=== PATIENT | female | born 1955 | race Caucasian/White ===

== ENCOUNTER 2018-03-19 14:52 | Inpatient (IN) ==
--- NOTE | 2018-03-19 17:46 | ED ---
HPI General Chief complaint: Syncope Stated complaint: Poss syncope Time Seen by Provider: 03/19/18 17:45 Source: patient Mode of arrival: EMS Limitations: no limitations History of Present Illness HPI narrative: 62-year-old female with no significant medical history presents emergency department following a syncopal episode. Patient went outside and smoke a cigarette. She is walking inside when she came in the door she collapsed. Patient does not remember what happened. Her was not in the room. He heard her fall and came in she was on the floor. She is uncertain if she hit her head but is reporting left posterior neck pain. It is moderate, dull, aching.Patient denies any chest pain or tightness. She denies any recent illnesses. She was however seen and evaluated last night emergency department had a small abscess drained on her left abdomen. Packing is still in place. Patient denies any chest pain or tightness. She denies any focal deficits or weakness. She has no other symptoms to report. Related Data Home Medications Medication Instructions Recorded Confirmed No Known Home Medications 03/18/18 03/19/18 Allergies Allergy/AdvReac Type Severity Reaction Status Date / Time penicillin G Allergy Severe Swelling Verified 03/19/18 17:33 ketorolac AdvReac Intermediate NAUSEA Verified 03/19/18 17:33 naproxen AdvReac Intermediate NAUSEA Verified 03/19/18 17:33 Review of Systems Except as stated in HPI: all other systems reviewed are negative PMFSH Medical History Medical History H/O: hysterectomy (Acute) Patient denies medical problems (Acute) Surgical History Surgical History Hx of section (Acute) Social History Social History Substance History: No History of Abuse Second Hand Smoke Exposure: Yes Smoking Status: Current every day smoker Tobacco Type: Cigarettes How Often Do You Have a Drink Containing Alcohol: Never Recent Travel in [facility] within the Last 8 Weeks: No Recent Out of Country Travel within the Last 8 Weeks: No Immunization History Tetanus Immunization: >5 Years Hx Influenza Vaccine This Season: No Exam Narrative Exam Narrative: GENERAL: Well-nourished female patient, appears in no acute distress. SKIN: Focused skin assessment warm/dry. HEAD: Atraumatic. Normocephalic. EYES: Pupils equal and round. No scleral icterus. No injection or drainage. EOMI ENT: No nasal bleeding or discharge. Mucous membranes pink and moist. NECK: Trachea midline. No JVD. CARDIOVASCULAR: Bradycardia rate and rhythm. No murmur appreciated. RESPIRATORY: No accessory muscle use. Clear to auscultation. Breath sounds equal bilaterally. GASTROINTESTINAL: Abdomen soft, non-tender, nondistended. Hepatic and splenic margins not palpable. MUSCULOSKELETAL: No obvious deformities. No clubbing. No cyanosis. No edema. NEUROLOGICAL: Awake and alert. No obvious cranial nerve deficits. Motor grossly within normal limits. Normal speech. PSYCHIATRIC: Appropriate mood and affect; insight and judgment normal. Course Initial Documented Vital Signs Temperature 97.5 F L 03/19/18 15:01 Pulse Rate 54 L 03/19/18 15:01 Respiratory Rate 16 03/19/18 15:01 Blood Pressure 116/54 L 03/19/18 15:01 Pulse Oximetry 99 03/19/18 15:01 Last Documented Vital Signs Temperature 97.5 F L 03/19/18 15:01 Pulse Rate 42 L 03/19/18 19:25 Respiratory Rate 15 03/19/18 19:25 Blood Pressure 122/58 L 03/19/18 19:25 Pulse Oximetry 100 03/19/18 19:25 Medical Decision Making ILIA Attestation ILIA supervised visit: Yes [facility] Narrative Medical decision making narrative: 62-year-old female presents emergency department for evaluation following a syncopal episode. Patient appears well. She has no neuro focal deficits or weakness. She is intermittently bradycardic that is sustained for quite some time here in the emergency department. She does not have any history of this per her knowledge. I discussed the patient with my attending physician. After review of the labs and imaging studies, she we feel would be in her best interest to be admitted observation for further evaluation of syncope and bradycardia. Differential Diagnosis Differential Diagnosis: Syncope versus near syncope versus electrolyte abnormality versus dehydration versus arrhythmia Medical Records Medical records reviewed: Yes I reviewed the patient's medical records. Lab Data Lab results reviewed: Yes I reviewed the patient's lab results. Result diagrams: 03/19/18 18:30 03/19/18 18:30 Lab Results 03/19/18 03/19/18 03/19/18 Range/Units 18:30 18:30 18:30 WBC 12.0 H (4.0-11.0) th/mm3 RBC 4.20 (4.00-5.30) mil/mm3 Hgb 12.7 (11.6-15.3) gm/dL Hct 36.0 (35.0-46.0) % MCV 85.7 (80.0-100.0) fL MCH 30.4 (27.0-34.0) pg MCHC 35.5 (32.0-36.0) % RDW 13.4 (11.6-17.2) % Plt Count 277 (150-450) th/mm3 MPV 7.9 (7.0-11.0) fL Neut % (Auto) 77.5 H (16.0-70.0) % Lymph % (Auto) 16.4 (9.0-44.0) % [place] % (Auto) 5.4 (0.0-8.0) % Eos % (Auto) 0.2 (0.0-4.0) % Baso % (Auto) 0.5 (0.0-2.0) % Neut # (Auto) 9.3 H (1.8-7.7) th/mm3 Lymph # (Auto) 2.0 (1.0-4.8) th/mm3 [place] # (Auto) 0.6 (0.0-0.9) th/mm3 Eos # (Auto) 0.0 (0.0-0.4) th/mm3 Baso # (Auto) 0.1 (0.0-0.2) th/mm3 WBC Differential . Differential Comment Auto diff final PT 11.0 (9.8-11.6) sec INR 1.1 Ratio APTT 26.0 (24.3-30.1) sec Sodium 141 (136-145) meq/L Potassium 3.8 (3.5-5.1) meq/L Chloride 106 (98-107) meq/L Carbon Dioxide 26.6 (21.0-32.0) meq/L Anion Gap 8 (5-15) meq/L BUN 15 (7-18) mg/dL Creatinine 0.67 (0.50-1.00) mg/dL Estimated GFR 89 (>89) mL/min Random Glucose 83 (74-106) mg/dL Calcium 8.8 (8.5-10.1) mg/dL Troponin I Less than 0.02 L (0.02-0.05) ng/mL Urine Color (Yellw/Straw) Urine Clarity (Clear) Urine pH (5.0-8.5) Ur Specific [place] (1.002-1.035) Urine Protein (Neg-Trace) mg/dL Urine Glucose (UA) (Negative) mg/dL Urine Ketones (Negative) mg/dL Urine Occult Blood (Negative) Urine Nitrate (Negative) Urine Bilirubin (Negative) Urine Urobilinogen (Less than 2) mg/dL Ur Leukocyte Esterase (Negative) Urine RBC (0-3) /hpf Urine WBC (0-5) /hpf Ur Squamous Epith Cells (0-5) /hpf Urine Bacteria (None) /hpf Micro UA Comment Urine Culture Comments 03/19/18 Range/Units 20:20 WBC (4.0-11.0) th/mm3 RBC (4.00-5.30) mil/mm3 Hgb (11.6-15.3) gm/dL Hct (35.0-46.0) % MCV (80.0-100.0) fL MCH (27.0-34.0) pg MCHC (32.0-36.0) % RDW (11.6-17.2) % Plt Count (150-450) th/mm3 MPV (7.0-11.0) fL Neut % (Auto) (16.0-70.0) % Lymph % (Auto) (9.0-44.0) % [place] % (Auto) (0.0-8.0) % Eos % (Auto) (0.0-4.0) % Baso % (Auto) (0.0-2.0) % Neut # (Auto) (1.8-7.7) th/mm3 Lymph # (Auto) (1.0-4.8) th/mm3 [place] # (Auto) (0.0-0.9) th/mm3 Eos # (Auto) (0.0-0.4) th/mm3 Baso # (Auto) (0.0-0.2) th/mm3 WBC Differential Differential Comment PT (9.8-11.6) sec INR Ratio APTT (24.3-30.1) sec Sodium (136-145) meq/L Potassium (3.5-5.1) meq/L Chloride (98-107) meq/L Carbon Dioxide (21.0-32.0) meq/L Anion Gap (5-15) meq/L BUN (7-18) mg/dL Creatinine (0.50-1.00) mg/dL Estimated GFR (>89) mL/min Random Glucose (74-106) mg/dL Calcium (8.5-10.1) mg/dL Troponin I (0.02-0.05) ng/mL Urine Color Straw (Yellw/Straw) Urine Clarity Clear (Clear) Urine pH 6.0 (5.0-8.5) Ur Specific [place] 1.003 (1.002-1.035) Urine Protein Negative (Neg-Trace) mg/dL Urine Glucose (UA) Negative (Negative) mg/dL Urine Ketones Negative (Negative) mg/dL Urine Occult Blood Negative (Negative) Urine Nitrate Negative (Negative) Urine Bilirubin Negative (Negative) Urine Urobilinogen Less than 2 (Less than 2) mg/dL Ur Leukocyte Esterase Negative (Negative) Urine RBC 1 (0-3) /hpf Urine WBC 3 (0-5) /hpf Ur Squamous Epith Cells 4 (0-5) /hpf Urine Bacteria Moderate H (None) /hpf Micro UA Comment Culture indicated Urine Culture Comments Culture indicated Imaging Data Radiologist's impression: Cervical Spine CT 03/19/18 18:22 CONCLUSION: 1. Moderate degenerative disc disease in the lower cervical spine with mild lateral recess and left-sided foraminal stenosis at C5-6-7. No acute findings. Head CT 03/19/18 18:22 CONCLUSION: 1. No acute intracranial abnormalities. Fluid in the sphenoid sinus. Discharge Plan Discharge Disposition Patient Disposition: 30 Still Patient Discharge Details Diagnosis: Syncope, Bradycardia Physicians Team ED Provider: Olegario Jansen ED Midlevel Provider: Stacy Mccray Primary Care Provider: Primary Care Physici,No Attending Provider: Jake Matson Status ED Status: Admitted Observation Patient
[2018-03-19] MEDS ORDERED: Sod Chloride 0.9% Inj 1,000 ML IV.SIG ONE (18:22)
[2018-03-19 18:50] LABS: Baso # (Auto) 0.1 th/mm3 (0.0-0.2); Baso % (Auto) 0.5 % (0.0-2.0); Eos % (Auto) 0.2 % (0.0-4.0); Hemoglobin 12.7 gm/dL (11.6-15.3); Lymph % (Auto) 16.4 % (9.0-44.0); Mean Corpuscular HGB Conc 35.5 % (32.0-36.0); Mean Corpuscular Hemoglobin 30.4 pg (27.0-34.0); Mean Corpuscular Volume 85.7 fL (80.0-100.0); Mean Platelet Volume 7.9 fL (7.0-11.0); Mono # (Auto) 0.6 th/mm3 (0.0-0.9); Mono % (Auto) 5.4 % (0.0-8.0); Neut # (Auto) 9.3 th/mm3 (1.8-7.7); Neut % (Auto) 77.5 % (16.0-70.0); Platelet Count 277 th/mm3 (150-450); Red Cell Distribution Width 13.4 % (11.6-17.2)
[2018-03-19 19:07] LABS: INR 1.1 Ratio
[2018-03-19 19:11] LABS: Anion Gap 8 meq/L (5-15); Blood Urea Nitrogen 15 mg/dL (7-18); Calcium 8.8 mg/dL (8.5-10.1); Carbon Dioxide 26.6 meq/L (21.0-32.0); Chloride 106 meq/L (98-107); Glomerular Filtration Rate 89 mL/min (>89); Glucose,Random 83 mg/dL (74-106); Potassium 3.8 meq/L (3.5-5.1); Sodium 141 meq/L (136-145)
--- NOTE | 2018-03-19 19:11 | CT ---
EXAM DATE: 03/19/2018 7:05 PM EDT AGE/SEX: 62 years / Female INDICATIONS: Syncopal episode. CLINICAL DATA: This is the patient's initial encounter. Patient reports that signs and symptoms have been present for 1 day and indicates a pain score of 5/10. MEDICAL/SURGICAL HISTORY: None. Hysterectomy. RADIATION DOSE: 16.82 CTDI (mGy) COMPARISON: No prior exams available for comparison. TECHNIQUE: Contiguous axial images were obtained using helical multirow detector technique. The vol umetric data was post-processed with multiplanar reconstruction in oblique axial, sagittal, and coron al planes. Using automated exposure control and adjustment of the mA and/or kV according to patient s ize, radiation dose was kept as low as reasonably achievable to obtain optimal diagnostic quality raysa ges. DICOM format image data is available electronically for review and comparison. FINDINGS: There is moderate degenerative disc disease in the cervical spine. No acute fracture or spondylolisth esis. No prevertebral soft tissues. There is no significant bony canal stenosis. CONCLUSION: 1. Moderate degenerative disc disease in the lower cervical spine with mild lateral recess and left- sided foraminal stenosis at C5-6-7. No acute findings. Electronically signed by: Donnell Coronel MD 03/19/2018 7:10 PM EDT
--- NOTE | 2018-03-19 19:13 | CT ---
EXAM DATE: 03/19/2018 7:04 PM EDT AGE/SEX: 62 years / Female INDICATIONS: Syncopal episode. CLINICAL DATA: This is the patient's initial encounter. Patient reports that signs and symptoms have been present for 1 day and indicates a pain score of 5/10. MEDICAL/SURGICAL HISTORY: None. Hysterectomy. RADIATION DOSE: 32.50 CTDI (mGy) COMPARISON: No prior exams available for comparison. TECHNIQUE: CT of the head without contrast. Using automated exposure control and adjustment of the mA and/or kV according to patient size, radiation dose was kept as low as reasonably achievable to ob tain optimal diagnostic quality images. DICOM format image data is available electronically for revi ew and comparison. FINDINGS: Cerebrum: The ventricles are normal for age. No evidence of midline shift, mass lesion, hemorrhage or acute infarction. No extraaxial fluid collections are seen. Posterior Fossa: The cerebellum and brainstem are intact. The 4th ventricle is midline. The cerebe llopontine angle is unremarkable. Extracranial: The visualized portion of the orbits is intact. There is fluid in the sphenoid sinus. Skull: The calvaria is intact. No evidence of skull fracture. CONCLUSION: 1. No acute intracranial abnormalities. Fluid in the sphenoid sinus. Electronically signed by: Donnell Coronel MD 03/19/2018 7:12 PM EDT
[2018-03-19 20:42] LABS: Bacteria,Urine Moderate /hpf; Bilirubin,Urine Negative (Negative); Clarity,Urine Clear (Clear); Color,Urine Straw (Yellw/Straw); Glucose,Urine (UA) Negative (Negative); Leukocyte Esterase,Urine Negative (Negative); Nitrite,Urine Negative (Negative); Specific Gravity,Urine 1.003 (1.002-1.035); Squamous Epithelial Cell,Urine 4 /hpf (0-5)
--- NOTE | 2018-03-19 22:05 | P.HP ---
History of Present Illness Service: [facility] adult medicine Primary Care Physician: No Primary Care Physician Chief Complaint: passed out History of Present Illness: 62-year-old obese female who is otherwise relatively healthy presents to the ER via [facility] after her found her on the floor unresponsive at their home earlier today. He reports he was in the next room and heard her fall against the wall onto to the floor. When he ran into the next room to investigate he found her somewhat unresponsive prone on the floor with her left arm behind her back. He reports that she was unconscious for approximately 30-45 seconds. He notified [facility] immediately and she apparently was conscious when they arrived. Her vital signs have been relatively stable here but her heart rate is remained in the 40s-50s consistently. I do not have any recent outpatient records but in 2016 on outpatient visits her heart rate was 59 and 67. She is unaware if she has had lower heart rate in the past and she does not typically go to the doctor and is generally pretty healthy. Patient reports that she can only remember coming back into her house after having smoked a cigarette and was walking across the room to her kitchen and the next thing she knew she was on the floor waking up with her staring down at her. She denies any chest pain or shortness of breath. There was no tongue biting or loss of bowel or bladder function. There was no postictal confusion. Patient denies any dyspnea or chest pain as noted. She had no palpitations. She has not had a similar episode in the past. It is noted that she had incision and drainage of a cyst on her left abdominal wall yesterday but she reports that has not been causing significant pain or problem for her. She denies any fevers or chills. Denies any nausea vomiting. No recent head injury but did say that her neck and her and felt somewhat tight after the fall today. Initial studies and labs are unrevealing as to the etiology of her syncopal episode. - Diagnosis (1) Syncope (2) Bradycardia (3) Cervicalgia (4) Abscess Review of Systems Constitutional: Denies anorexia, Denies body ache(s), Denies chills, Denies daytime sleepiness, Denies excessive sweating, Denies fatigue, Denies fever(s), Denies headache(s), Denies increased appetite, Denies lack of energy, Denies malaise, Denies night sweats, Denies weakness, Denies weight gain, Denies weight loss, Denies other Eyes: Denies blind spots, Denies blurry vision, Denies bulging eyes, Denies change in vision, Denies double vision, Denies discharge, Denies dry eyes, Denies floaters, Denies irritation, Denies itchy eyes, Denies loss of vision, Denies pain, Denies requires corrective lenses, Denies sensitivity to light, Denies other Ears, Nose, Mouth, and Throat: Denies abnormal hearing, Denies bleeding gums, Denies bad breath, Denies change in voice, Denies dental pain, Denies difficulty swallowing, Denies dizziness, Denies dry mouth, Denies ear discharge , Denies ear pain, Denies facial pain, Denies headache(s), Denies hearing loss, Denies hoarseness, Denies lip swelling, Denies nosebleed, Denies mouth lesions, Denies mouth pain, Denies nasal congestion, Denies nasal discharge, Denies nasal obstruction, Denies nasal trauma, Denies neck lump, Denies neck pain, Denies nose pain, Denies pain with swallowing, Denies poor balance, Denies post nasal drip, Denies ringing in the ears, Denies sinus pain, Denies sinus pressure , Denies sore throat, Denies throat swelling, Denies tongue swelling, Denies other Cardiovascular: Denies chest pain, Denies chest pain at rest, Denies chest pain with activity, Denies excessive sweating, Denies fainting, Denies fast heart rate, Denies foot swelling, Denies generalized swelling, Denies irregular heart rhythm, Denies leg pain with activity, Denies leg sores, Denies leg swelling, Denies lightheadedness, Denies radiating jaw, neck or arm pain, Denies rapid, pounding, or irregular heartbeat, Denies shortness of breath, Denies shortness of breath with activity, Denies shortness of breath when lying down, Denies shortness of breath causing sudden awakening, Denies slow heart rate, Denies other Respiratory: Denies change in phlegm color, Denies chest congestion, Denies cough, Denies coughing up blood, Denies excessive phlegm production, Denies pain on inspiration, Denies pain with cough, Denies shortness of breath, Denies shortness of breath with activity, Denies snoring, Denies stridor, Denies wheezing, Denies other Gastrointestinal: Denies abdominal pain, Denies belching, Denies black, tarry stools, Denies bloating, Denies bright, red blood in stools, Denies change in bowel habits, Denies constant urge to pass stool, Denies change in stools, Denies coffee ground vomit, Denies constipation, Denies cramping, Denies difficulty swallowing, Denies excessive passing of gas, Denies feeling full early, Denies heartburn, Denies incontinent of stools, Denies loose stools, Denies nausea, Denies pain with swallowing, Denies vomiting, Denies vomiting blood, Denies other Musculoskeletal: Reports joint pain, Reports neck pain Neurologic: Reports fainting, Denies abnormal hearing, Denies abnormal movements , Denies abnormal speech, Denies abnormal walking, Denies behavioral changes, Denies burning sensations, Denies confusion, Denies dizziness, Denies frequent falls, Denies headache(s), Denies lack of coordination, Denies localized weakness, Denies loss of vision, Denies memory loss, Denies numbness, Denies other visual disturbances, Denies radiating pain, Denies restless legs, Denies convulsions, Denies seizure-like activity, Denies sensory deficit, Denies tingling, Denies tingling/numbness/burning sensations, Denies tremor(s), Denies unsteadiness, Denies weakness, Denies other Psychiatric: Reports anxiety PMFSH - History History Provided By: Patient - Medical History Medical History: Medical History (Last Updated 03/19/18 @ 17:35 by Jen Jin RN) H/O: hysterectomy Patient denies medical problems - Surgical History Surgical History: Surgical History (Last Reviewed 03/19/18 @ 17:35 by Jen Jin RN) Hx of section - Tobacco History Second Hand Smoke Exposure: Yes Tobacco Use In Past 30 Days: Yes Smoking Status: Current every day smoker Tobacco Type: Cigarettes Cigarettes Per Day: 10 Years Smoked: 40 - Alcohol History How Often Do You Have a Drink Containing Alcohol: Monthly or less - Substance Use History Substance History: No History of Abuse - Travel History History of Recent Travel: No Recent Travel in the [facility] Within the Last 8 Weeks: No Recent Travel Out of the Country Within the Last 8 Weeks: No - Immunization History Tetanus Immunization: >5 Years Hx Influenza Vaccine This Season: No Medications and Allergies Allergies Allergy/AdvReac Type Severity Reaction Status Date / Time penicillin G Allergy Severe Swelling Verified 03/19/18 17:33 ketorolac AdvReac Intermediate NAUSEA Verified 03/19/18 22:00 naproxen AdvReac Intermediate NAUSEA Verified 03/19/18 17:33 Home Medications Medication Instructions Recorded Confirmed Type No Known Home Medications 03/18/18 03/19/18 History Exam Vital signs: Vital Signs 03/19/18 15:01 03/19/18 18:22 03/19/18 19:25 Temperature 97.5 F L Pulse Rate 54 L 94 H 42 L Respiratory Rate 16 15 Blood Pressure 116/54 L 122/58 L Pulse Oximetry 99 98 100 Intake & Output 03/19/18 03/19/18 03/20/18 06:59 18:59 06:59 Weight 72 kg Narrative: GENERAL: Obese, alert and oriented, no acute distress. SKIN: Warm and dry. Left lower abdominal wall with open wound from recent I&D procedure with packing in place. HEAD: Atraumatic. Normocephalic. EYES: Pupils equal and round. No scleral icterus. No injection or drainage. ENT: No nasal bleeding or discharge. Mucous membranes pink and moist. NECK: Trachea midline. No JVD. Paracervical spasm bilaterally. No central tenderness to palpation. CARDIOVASCULAR: Regular rate and rhythm. Rate in the 50s on my exam. No significant murmur. RESPIRATORY: No accessory muscle use. Clear to auscultation. Breath sounds equal bilaterally. GASTROINTESTINAL: Abdomen soft, non-tender, nondistended. Hepatic and splenic margins not palpable. MUSCULOSKELETAL: Extremities without clubbing, cyanosis, or edema. No obvious deformities. NEUROLOGICAL: Awake and alert. No obvious cranial nerve deficits. Motor grossly within normal limits. Five out of 5 muscle strength in the arms and legs. Normal speech. PSYCHIATRIC: Appropriate mood and affect; insight and judgment normal. Results - Labs CBC & Chem 7: 03/19/18 18:30 03/19/18 18:30 Labs: Laboratory Results - last 24 hr 03/19/18 03/19/18 03/19/18 18:30 18:30 18:30 WBC 12.0 H RBC 4.20 Hgb 12.7 Hct 36.0 MCV 85.7 MCH 30.4 MCHC 35.5 RDW 13.4 Plt Count 277 MPV 7.9 Neut % (Auto) 77.5 H Lymph % (Auto) 16.4 [place] % (Auto) 5.4 Eos % (Auto) 0.2 Baso % (Auto) 0.5 Neut # (Auto) 9.3 H Lymph # (Auto) 2.0 [place] # (Auto) 0.6 Eos # (Auto) 0.0 Baso # (Auto) 0.1 WBC Differential . Differential Comment Auto diff final PT 11.0 INR 1.1 APTT 26.0 Sodium 141 Potassium 3.8 Chloride 106 Carbon Dioxide 26.6 Anion Gap 8 BUN 15 Creatinine 0.67 Estimated GFR 89 Random Glucose 83 Calcium 8.8 Troponin I Less than 0.02 L Urine Color Urine Clarity Urine pH Ur Specific [place] Urine Protein Urine Glucose (UA) Urine Ketones Urine Occult Blood Urine Nitrate Urine Bilirubin Urine Urobilinogen Ur Leukocyte Esterase Urine RBC Urine WBC Ur Squamous Epith Cells Urine Bacteria Micro UA Comment Urine Culture Comments 03/19/18 20:20 WBC RBC Hgb Hct MCV MCH MCHC RDW Plt Count MPV Neut % (Auto) Lymph % (Auto) [place] % (Auto) Eos % (Auto) Baso % (Auto) Neut # (Auto) Lymph # (Auto) [place] # (Auto) Eos # (Auto) Baso # (Auto) WBC Differential Differential Comment PT INR APTT Sodium Potassium Chloride Carbon Dioxide Anion Gap BUN Creatinine Estimated GFR Random Glucose Calcium Troponin I Urine Color Straw Urine Clarity Clear Urine pH 6.0 Ur Specific [place] 1.003 Urine Protein Negative Urine Glucose (UA) Negative Urine Ketones Negative Urine Occult Blood Negative Urine Nitrate Negative Urine Bilirubin Negative Urine Urobilinogen Less than 2 Ur Leukocyte Esterase Negative Urine RBC 1 Urine WBC 3 Ur Squamous Epith Cells 4 Urine Bacteria Moderate H Micro UA Comment Culture indicated Urine Culture Comments Culture indicated - Imaging Impressions Cervical Spine CT 03/19/18 18:22 CONCLUSION: 1. Moderate degenerative disc disease in the lower cervical spine with mild lateral recess and left-sided foraminal stenosis at C5-6-7. No acute findings. Head CT 03/19/18 18:22 CONCLUSION: 1. No acute intracranial abnormalities. Fluid in the sphenoid sinus. Caprini VTE Risk Assessment Caprini VTE Risk Assessment: Moderate/High Risk (score >= 2) Caprini Risk Assessment Model: Point Value = 1 Point Value = 2 Point Value = 3 Point Value = 5 Age 41-60 Minor surgery BMI > 25 kg/m2 Swollen legs Varicose veins or History of unexplained or recurrent spontaneous Oral contraceptives or hormone replacement Sepsis (< 1 month) Serious lung disease, including pneumonia (< 1 month) Abnormal pulmonary function Acute myocardial infarction Congestive heart failure (< 1 month) History of inflammatory bowel disease Medical patient at bed rest Age 61-74 Arthroscopic surgery Major open surgery (> 45 min) Laparoscopic surgery (> 45 min) Malignancy Confined to bed (> 72 hours) Immobilizing plaster cast Central venous access Age >= 75 History of VTE Family history of VTE Factor V Leiden Prothrombin [id number] Lupus anticoagulant Anticardiolipin antibodies Elevated serum homocysteine Heparin-induced thrombocytopenia Other congenital or acquired thrombophilia Stroke (< 1 month) Elective arthroplasty Hip, pelvis, or leg fracture Acute spinal cord injury (< 1 month) Prophylaxis Regimen: Total Risk Factor Score Risk Level Prophylaxis Regimen 0-1 Low Early ambulation 2 Moderate Order ONE of the following: *Sequential Compression Device (SCD) *Heparin 5000 units SQ BID 3-4 Higher Order ONE of the following medications: *Heparin 5000 units SQ TID *Enoxaparin/Lovenox 40 mg SQ daily (WT < 150 kg, CrCl > 30 mL/min) *Enoxaparin/Lovenox 30 mg SQ daily (WT < 150 kg, CrCl > 10-29 mL/min) *Enoxaparin/Lovenox 30 mg SQ BID (WT < 150 kg, CrCl > 30 mL/min) AND/OR *Sequential Compression Device (SCD) 5 or more Highest Order ONE of the following medications: *Heparin 5000 units SQ TID (Preferred with Epidurals) *Enoxaparin/Lovenox 40 mg SQ daily (WT < 150 kg, CrCl > 30 mL/min) *Enoxaparin/Lovenox 30 mg SQ daily (WT < 150 kg, CrCl > 10-29 mL/min) *Enoxaparin/Lovenox 30 mg SQ BID (WT < 150 kg, CrCl > 30 mL/min) AND *Sequential Compression Device (SCD) Assessment and Plan - Assessment (1) Syncope Code(s): R55 - Syncope and collapse Status: Acute Plan: Questionable etiology. She remains somewhat bradycardic but I am unsure what her baseline heart rate is. Will check echo and carotid ultrasound. Monitor her on telemetry. Remainder of workup can be done as outpatient if these studies are nonrevealing. She appears back to her baseline with the exception of some paracervical spasm. (2) Bradycardia Code(s): R00.1 - Bradycardia, unspecified Status: Acute Plan: As above. (3) Cervicalgia Code(s): M54.2 - Cervicalgia Status: Acute Plan: We will provide muscle relaxer and one shot of Toradol. She seems to tolerate the IV formulation fine but has GI upset on oral formulation. (4) Abscess Code(s): L02.91 - Cutaneous abscess, unspecified Status: Acute Plan: Wound care. - Plan Code Status: full Discussed Condition With: , patient and ER provider (1) Syncope Qualifiers: Syncope type: unspecified Qualified Code(s): R55 - Syncope and collapse
[2018-03-19] MEDS ORDERED: Methocarbamol 500 MG Tablet PO PRN (22:10)
[2018-03-19] MEDS ORDERED: Ketorolac Inj 30 MG/ML (IVP) Vial IV.PUSH ONE (22:10)
[2018-03-19] MEDS: Acetaminophen 325 MG Tablet PO PRN (23:42)
--- NOTE | 2018-03-20 00:21 | US ---
EXAM DATE: 03/19/2018 11:39 PM EDT AGE/SEX: 62 years / Female INDICATIONS: Syncope. CLINICAL DATA: This is the patient's initial encounter. Patient reports that signs and symptoms have been present for 1 day and indicates a pain score of 0/10. MEDICAL/SURGICAL HISTORY: . Syncope. section. Hysterectomy. COMPARISON: No prior exams available for comparison. VELOCITY PARAMETERS: ICA/CCA Ratio: Right 0.9 , Left 1.2 ICA: Right 107 cm/sec, Left 110 cm/sec CCA: Right 100 cm/sec, Left 130 cm/sec ECA: Right 78 cm/sec, Left 116 cm/sec Vertebral: Right 67 cm/sec antegrade, Left 79 cm/sec antegrade FINDINGS: Right Carotid: No significant plaque is visualized.The waveforms are within normal limits. Left Carotid: No significant plaque is visualized. The waveforms are within normal limits. Other: None. CONCLUSION: 1. Right Internal Carotid Artery: Findings indicate <50% stenosis. 2. Left Internal Carotid Artery: Findings indicate <50% stenosis. Electronically signed by: Corbin Cutler MD 03/20/2018 12:20 AM EDT
[2018-03-20] MEDS: Acetaminophen 325 MG Tablet PO PRN ×2 (08:25→18:43)
--- NOTE | 2018-03-20 08:40 | ECG ---
Date Performed: 03/19/2018 Time Performed: 19:32:32 PTAGE: 62 years EKG: SINUS BRADYCARDIA ANTEROSEPTAL MYOCARDIAL INFARCTION T-WAVE ABNORMALITY, CONSIDER INFERIOR AND ANTEROLATERAL ISCHEMIA ABNORMAL ECG NO PREVIOUS TRACING DOCTOR: Zi Rodney Interpretating Date/Time 03/20/2018 08:40:26
--- NOTE | 2018-03-20 11:53 | ECHRPT ---
Indication: HYPERTENSIVE HEART DISEASE CONCLUSIONS The left ventricular systolic function is hyperdynamic with an estimated ejection fraction in the ra nge of 65- 70%. Normal left ventricular size. Wall thickness is normal. No regional wall motion abnormalities are present. No tricuspid regurgitation. Normal estimated pulmonary pressures. The pulmonary valve is not well visualized. BP: / HR: Rhythm: Sinus MEASUREMENTS (Male / Female) Normal Values Technical Quality:Good 2D ECHO LV Diastolic Diameter PLAX 4.3 cm 4.2 - 5.9 / 3.9 - 5.3 cm LV Systolic Diameter PLAX 3.4 cm IVS Diastolic Thickness 0.8 cm 0.6 - 1.0 / 0.6 - 0.9 cm LVPW Diastolic Thickness 0.8 cm 0.6 - 1.0 / 0.6 - 0.9 cm LV Relative Wall Thickness 0.4 RV Internal Dim ED PLAX 2.9 cm LVOT Diameter 1.9 cm LA Systolic Diameter LX 3.7 cm 3.0 - 4.0 / 2.7 - 3.8 cm LV Ejection Fraction MOD 4C 58.8 % LV Ejection Fraction 4C AL 60.2 % M-MODE Aortic Root Diameter MM 2.6 cm LA Systolic Diameter MM 3.7 cm LA Ao Ratio MM 1.4 AV Cusp Separation MM 2.2 cm DOPPLER AV Peak Velocity 125.0 cm/s AV Peak Gradient 6.3 mmHg LVOT Peak Velocity 106.0 cm/s LVOT Peak Gradient 4.5 mmHg AV Area Cont Eq pk 2.4 cm MV Area PHT 5.0 cm Mitral E Point Velocity 98.0 cm/s Mitral A Point Velocity 43.4 cm/s Mitral E to A Ratio 2.3 LV E' Lateral Velocity 10.5 cm/s Mitral E to LV E' Lateral Ratio 9.3 LV E' Septal Velocity 9.3 cm/s Mitral E to LV E' Septal Ratio 10.6 TR Peak Velocity 200.0 cm/s TR Peak Gradient 16.0 mmHg PV Peak Velocity 76.0 cm/s PV Peak Gradient 2.3 mmHg FINDINGS LEFT VENTRICLE The left ventricular systolic function is hyperdynamic with an estimated ejection fraction in the ra nge of 65- 70%. Normal left ventricular size. Wall thickness is normal. No regional wall motion abnormalities are present. RIGHT VENTRICLE Normal right ventricular size and systolic function. LEFT ATRIUM The left atrial size is normal. RIGHT ATRIUM The right atrial size is normal. ATRIAL SEPTUM Normal atrial septal thickness without atrial level shunting by limited color doppler interrogation. AORTA The aortic root and proximal ascending aorta are normal in size on limited imaging. MITRAL VALVE Structurally normal mitral valve. No mitral valve stenosis or regurgitation. AORTIC VALVE Trileaflet aortic valve. No aortic valve stenosis or regurgitation. TRICUSPID VALVE Structurally normal tricuspid valve. No tricuspid regurgitation. Normal estimated pulmonary pressures. PULMONARY VALVE The pulmonary valve is not well visualized. VESSELS The inferior vena cava is normal in size. PERICARDIUM No pericardial effusion. Luis Alberto Ureña MD, FACC, [facility] (Electronically Signed) Final Date:20 March 2018 11:52
--- NOTE | 2018-03-20 13:09 | P.PNIM ---
Subjective Interval history: Follow up: syncope Patient reports feeling better now asking to go home Physical Exam Vital signs: Vital Signs 03/19/18 15:01 03/19/18 18:22 03/19/18 19:25 Temperature 97.5 F L Pulse Rate 54 L 94 H 42 L Respiratory Rate 16 15 Blood Pressure 116/54 L 122/58 L Pulse Oximetry 99 98 100 03/19/18 21:58 03/19/18 22:34 03/19/18 22:38 Temperature 98.7 F 98.7 F Pulse Rate 75 64 67 Respiratory Rate 16 16 16 Blood Pressure 134/60 103/55 L 117/58 L Pulse Oximetry 97 98 98 03/19/18 22:40 03/20/18 00:01 03/20/18 04:00 Temperature 98.7 F 98.7 F Pulse Rate 65 56 L 60 Respiratory Rate 16 16 Blood Pressure 120/58 L 102/53 L Pulse Oximetry 98 96 03/20/18 08:47 03/20/18 10:24 Temperature 98.2 F Pulse Rate 70 45 L Respiratory Rate 20 Blood Pressure 100/56 L Pulse Oximetry 98 Intake & Output 03/19/18 03/20/18 03/20/18 18:59 06:59 18:59 Intake Total 1000 / 1000 Balance 1000 / 1000 Weight 72 kg Intake: IV 1000 / 1000 NS Inj 1,000 ML @ Wide Open IV. 1000 / 1000 SIG BOLUS ONE Rx#:[id number] Narrative: GENERAL: 62 year old female, no acute distress. SKIN: Warm and dry. Left lower abdominal wall with open wound from recent I&D procedure with packing in place. HEAD: Atraumatic. Normocephalic. EYES: Pupils equal and round. No scleral icterus. No injection or drainage. CARDIOVASCULAR: Bradycardic RESPIRATORY: No accessory muscle use. Clear to auscultation. GASTROINTESTINAL: Abdomen soft, non-tender, nondistended. MUSCULOSKELETAL: Extremities without clubbing, cyanosis, or edema. No obvious deformities. NEUROLOGICAL: Awake and alert. No obvious cranial nerve deficits. Motor grossly within normal limits. Five out of 5 muscle strength in the arms and legs. Normal speech. Results - Labs CBC & Chem 7: 03/21/18 12:23 03/19/18 18:30 Laboratory Results - last 24 hr 03/19/18 03/19/18 03/19/18 18:30 18:30 18:30 WBC 12.0 H RBC 4.20 Hgb 12.7 Hct 36.0 MCV 85.7 MCH 30.4 MCHC 35.5 RDW 13.4 Plt Count 277 MPV 7.9 Neut % (Auto) 77.5 H Lymph % (Auto) 16.4 [place] % (Auto) 5.4 Eos % (Auto) 0.2 Baso % (Auto) 0.5 Neut # (Auto) 9.3 H Lymph # (Auto) 2.0 [place] # (Auto) 0.6 Eos # (Auto) 0.0 Baso # (Auto) 0.1 WBC Differential . Differential Comment Auto diff final PT 11.0 INR 1.1 APTT 26.0 Sodium 141 Potassium 3.8 Chloride 106 Carbon Dioxide 26.6 Anion Gap 8 BUN 15 Creatinine 0.67 Estimated GFR 89 Random Glucose 83 Calcium 8.8 Troponin I Less than 0.02 L TSH 1.790 Urine Color Urine Clarity Urine pH Ur Specific [place] Urine Protein Urine Glucose (UA) Urine Ketones Urine Occult Blood Urine Nitrate Urine Bilirubin Urine Urobilinogen Ur Leukocyte Esterase Urine RBC Urine WBC Ur Squamous Epith Cells Urine Bacteria Micro UA Comment Urine Culture Comments 03/19/18 03/19/18 18:30 20:20 WBC RBC Hgb Hct MCV MCH MCHC RDW Plt Count MPV Neut % (Auto) Lymph % (Auto) [place] % (Auto) Eos % (Auto) Baso % (Auto) Neut # (Auto) Lymph # (Auto) [place] # (Auto) Eos # (Auto) Baso # (Auto) WBC Differential Differential Comment PT INR APTT Sodium Potassium Chloride Carbon Dioxide Anion Gap BUN Creatinine Estimated GFR Random Glucose Calcium Troponin I TSH Cancelled Urine Color Straw Urine Clarity Clear Urine pH 6.0 Ur Specific [place] 1.003 Urine Protein Negative Urine Glucose (UA) Negative Urine Ketones Negative Urine Occult Blood Negative Urine Nitrate Negative Urine Bilirubin Negative Urine Urobilinogen Less than 2 Ur Leukocyte Esterase Negative Urine RBC 1 Urine WBC 3 Ur Squamous Epith Cells 4 Urine Bacteria Moderate H Micro UA Comment Culture indicated Urine Culture Comments Culture indicated - Imaging Impressions Carotid Doppler Study 03/19/18 00:00 CONCLUSION: 1. Right Internal Carotid Artery: Findings indicate <50% stenosis. 2. Left Internal Carotid Artery: Findings indicate <50% stenosis. Cervical Spine CT 03/19/18 18:22 CONCLUSION: 1. Moderate degenerative disc disease in the lower cervical spine with mild lateral recess and left-sided foraminal stenosis at C5-6-7. No acute findings. Head CT 03/19/18 18:22 CONCLUSION: 1. No acute intracranial abnormalities. Fluid in the sphenoid sinus. Assessment and Plan - Plan Syncope Questionable etiology. Head CT reviewed and reveals: No acute intracranial abnormalities. Fluid in the sphenoid sinus. 2D cardiac echocardiogram: The left ventricular systolic function is hyperdynamic with an estimated ejection fraction in the range of 65- 70%. Normal left ventricular size. Wall thickness is normal. No regional wall motion abnormalities are present. No tricuspid regurgitation. Normal estimated pulmonary pressures. The pulmonary valve is not well visualized. Carotid ultrasound: 1. Right Internal Carotid Artery: Findings indicate <50% stenosis. 2. Left Internal Carotid Artery: Findings indicate <50% stenosis. Telemetry shows bradycardia in the 40s with syncopal episode 03/19/18 Bradycardia consult placed to cardiology Cervicalgia Resolved after muscle relaxer and Toradol. Cervical Spine CT reviewed and reveals: Moderate degenerative disc disease in the lower cervical spine with mild lateral recess and left-sided foraminal stenosis at C5-6-7. No acute findings. Abscess S/P incision and drainage of a cyst on her left abdominal wall 03/18/18 Wound care DVT prophylaxis with SCDs - Attending Attestation Patient examined. Assessment and plan formulated with Maryann Johnston PA-C. I agree with the above. HR in the 40s. No c/o chest pain. Consult Cardiology.
[2018-03-21] MEDS: Acetaminophen 325 MG Tablet PO PRN (05:54)
--- NOTE | 2018-03-21 11:27 | P.PNIM ---
Subjective Interval history: Follow up: syncope and bradycardia Patient reports feeling well feels fatigued due to frequently being woken up while trying to sleep Physical Exam Vital signs: Vital Signs 03/20/18 12:00 03/20/18 13:33 03/20/18 18:09 Temperature Pulse Rate 46 L 60 Respiratory Rate 18 Blood Pressure 90/54 L 101/58 L 96/55 L Pulse Oximetry 98 98 03/20/18 20:00 03/20/18 20:32 03/20/18 20:34 Temperature 98.7 F 98.7 F 98.7 F Pulse Rate 63 57 L 60 Respiratory Rate 16 16 16 Blood Pressure 109/54 L 102/57 L 96/53 L Pulse Oximetry 96 95 95 03/21/18 00:00 03/21/18 04:00 03/21/18 08:00 Temperature 98.4 F 98.2 F 97.7 F Pulse Rate 51 L 45 L 43 L Respiratory Rate 16 16 16 Blood Pressure 103/57 L 99/52 L 100/51 L Pulse Oximetry 97 97 95 Intake & Output 03/20/18 03/21/18 03/21/18 18:59 06:59 18:59 Other: # Voids 4 # Emeses 0 Narrative: GENERAL: 62 year old female, no acute distress. SKIN: Warm and dry. Left lower abdominal wall with open wound from recent I&D procedure with packing in place. HEAD: Atraumatic. Normocephalic. EYES: Pupils equal and round. No scleral icterus. No injection or drainage. CARDIOVASCULAR: Bradycardic RESPIRATORY: No accessory muscle use. Clear to auscultation. GASTROINTESTINAL: Abdomen soft, non-tender, nondistended. MUSCULOSKELETAL: Extremities without clubbing, cyanosis, or edema. No obvious deformities. NEUROLOGICAL: Awake and alert. No obvious cranial nerve deficits. Motor grossly within normal limits. Five out of 5 muscle strength in the arms and legs. Normal speech. Results - Labs CBC & Chem 7: 03/21/18 12:23 03/19/18 18:30 Microbiology 03/19/18 20:20 Random Urine Urine Culture - Final 50-100,000 cfu/mL mixed gram positive derek (probable contaminants) Assessment and Plan - Plan Syncope Questionable etiology. Head CT reviewed and reveals: No acute intracranial abnormalities. Fluid in the sphenoid sinus. 2D cardiac echocardiogram: The left ventricular systolic function is hyperdynamic with an estimated ejection fraction in the range of 65- 70%. Normal left ventricular size. Wall thickness is normal. No regional wall motion abnormalities are present. No tricuspid regurgitation. Normal estimated pulmonary pressures. The pulmonary valve is not well visualized. Carotid ultrasound: 1. Right Internal Carotid Artery: Findings indicate <50% stenosis. 2. Left Internal Carotid Artery: Findings indicate <50% stenosis. Telemetry shows bradycardia in the 40s with syncopal episode 03/19/18 cardiology has been consulted, Dr. Bell discussed with cardiology Dr. Hou she would like [employer] Lexiscan ordered Bradycardia consult placed to cardiology 12 lead EKG ordered await further recommendations per cardiology Cervicalgia Resolved after muscle relaxer and Toradol. Cervical Spine CT reviewed and reveals: Moderate degenerative disc disease in the lower cervical spine with mild lateral recess and left-sided foraminal stenosis at C5-6-7. No acute findings. Abscess S/P incision and drainage of a cyst on her left abdominal wall 03/18/18 Wound care DVT prophylaxis with SCDs - Attending Attestation Patient examined. Assessment and plan formulated with Maryann Johnston PA-C. I agree with the above. Case d/w Dr. Shine (03/21/18) Await results of Lexiscan 03/22/18
[2018-03-21 12:46] LABS: Baso # (Auto) 0.1 th/mm3 (0.0-0.2); Baso % (Auto) 0.8 % (0.0-2.0); Eos # (Auto) 0.1 th/mm3 (0.0-0.4); Eos % (Auto) 1.7 % (0.0-4.0); Hematocrit 37.3 % (35.0-46.0); Hemoglobin 12.7 gm/dL (11.6-15.3); Lymph # (Auto) 1.8 th/mm3 (1.0-4.8); Lymph % (Auto) 22.3 % (9.0-44.0); Mean Corpuscular HGB Conc 33.9 % (32.0-36.0); Mean Corpuscular Hemoglobin 29.2 pg (27.0-34.0); Mean Platelet Volume 8.1 fL (7.0-11.0); Mono # (Auto) 0.7 th/mm3 (0.0-0.9); Mono % (Auto) 9.2 % (0.0-8.0); Neut # (Auto) 5.3 th/mm3 (1.8-7.7); Platelet Count 275 th/mm3 (150-450); Red Blood Count 4.34 mil/mm3 (4.00-5.30); Red Cell Distribution Width 13.9 % (11.6-17.2); White Blood Count 7.9 th/mm3 (4.0-11.0)
--- NOTE | 2018-03-21 14:21 | P.CONCA ---
History of Present Illness Service: [facility] Cardiology Consult date: 03/21/18 Reason for Consult: Syncope Primary Care Provider: No Primary Care Physician Family Provider: No Primary Care Physician Chief Complaint: passed out History of Present Illness: 62-year-old lady, with no significant medical problem, was sent to ED yesterday after a syncopal event. Most info obtained from patient and her at bedside. It was a ordinary day that she was getting ready to go to work, and her found her on the floor unresponsive at their home. He reports he was in the next room and heard her fall against the wall onto to the floor. When he ran into the next room to investigate he found her somewhat unresponsive prone on the floor with her left arm behind her back. He reports that she was unconscious for approximately 30-45 seconds. He notified [facility] immediately and she apparently was conscious when they arrived. Patient can only remember coming back into her house after having smoked a cigarette and was walking across the room to her kitchen and the next thing she knew she was on the floor waking up with her staring down at her. She denies any chest pain or shortness of breath. There was no tongue biting or loss of bowel or bladder function. There was no postictal confusion. Patient denies any dyspnea or chest pain as noted. She had no palpitations. She has not had a similar episode in the past. It is noted that she had incision and drainage of a cyst on her left abdominal wall yesterday but she reports that has not been causing significant pain or problem for her. She denies any fevers or chills. Denies any nausea vomiting. No recent head injury but did say that her neck and her and felt somewhat tight after the fall. In ER, Her vital signs have been relatively stable but her heart rate is remained in the 40s-50s consistently. ECG showed sinus mariya at 41 bpm, with inverted T wave precordial leads. Telemetry now showed sinus rhythm in 60s. per nursing report, HR has been in 50s,but not meaningful tracing available since 6 am today due to artifact. Review of Systems Constitutional: Denies anorexia, Denies fatigue, Denies fever(s), Denies malaise , Denies night sweats, Denies weakness Eyes: Denies blurry vision Ears, Nose, Mouth, and Throat: Denies abnormal hearing, Denies dizziness, Denies ear pain, Denies facial pain, Denies headache(s) Cardiovascular: Reports fainting (10 years ago), Denies chest pain, Denies chest pain with activity, Denies excessive sweating, Denies fast heart rate, Denies irregular heart rhythm, Denies leg swelling Respiratory: Denies chest congestion, Denies cough, Denies coughing up blood, Denies shortness of breath Gastrointestinal: Denies abdominal pain, Denies belching, Denies heartburn Neurologic: Denies abnormal movements, Denies abnormal speech, Denies burning sensations, Denies frequent falls, Denies other visual disturbances Endocrine: Denies cold intolerance, Denies excessive sweating, Denies flushing PMFSH - History History Provided By: Patient - Medical History Medical History: Medical History (Last Reviewed 03/19/18 @ 21:56 by EMILEE Lenz) H/O: hysterectomy Patient denies medical problems - Surgical History Surgical History: Surgical History (Last Reviewed 03/19/18 @ 21:56 by EMILEE Lenz) Hx of section - Tobacco History Second Hand Smoke Exposure: Yes Tobacco Use In Past 30 Days: Yes Smoking Status: Current every day smoker Tobacco Type: Cigarettes Cigarettes Per Day: 10 Years Smoked: 40 - Alcohol History How Often Do You Have a Drink Containing Alcohol: Never - Substance Use History Substance History: No History of Abuse - Travel History History of Recent Travel: No Recent Travel in the [place] Within the Last 8 Weeks: No Recent Travel Out of the Country Within the Last 8 Weeks: No - Immunization History Tetanus Immunization: >5 Years Hx Influenza Vaccine This Season: No Medications and Allergies Active Medications: Active Medications Acetaminophen (Tylenol) 650 mg PO Q6H PRN PRN Reason: TEMP OR HEADACHE Last Admin: 03/21/18 05:54 Dose: 650 mg Methocarbamol (Robaxin) 500 mg PO Q8HR PRN PRN Reason: SPASM Allergies Allergy/AdvReac Type Severity Reaction Status Date / Time penicillin G Allergy Severe Swelling Verified 03/19/18 17:33 ketorolac AdvReac Intermediate NAUSEA Verified 03/19/18 22:00 naproxen AdvReac Intermediate NAUSEA Verified 03/19/18 17:33 Home Medications Medication Instructions Recorded Confirmed Type No Known Home Medications 03/18/18 03/19/18 History Exam Vital signs: Vital Signs 03/20/18 18:09 03/20/18 20:00 03/20/18 20:32 Temperature 98.7 F 98.7 F Pulse Rate 60 63 57 L Respiratory Rate 16 16 Blood Pressure 96/55 L 109/54 L 102/57 L Pulse Oximetry 98 96 95 03/20/18 20:34 03/21/18 00:00 03/21/18 04:00 Temperature 98.7 F 98.4 F 98.2 F Pulse Rate 60 51 L 45 L Respiratory Rate 16 16 16 Blood Pressure 96/53 L 103/57 L 99/52 L Pulse Oximetry 95 97 97 03/21/18 08:00 03/21/18 12:00 03/21/18 13:29 Temperature 97.7 F 97.6 F Pulse Rate 43 L 50 L 54 L Respiratory Rate 16 Blood Pressure 100/51 L 99/57 L Pulse Oximetry 95 98 Intake & Output 03/20/18 03/21/18 03/21/18 18:59 06:59 18:59 Other: # Voids 4 Date of Last Bowel Movement 03/20/18 # Emeses 0 - Constitutional no acute distress - Routine HEENT Exam Head: Present: normocephalic, atraumatic. Absent: hematoma, tenderness of temporal artery Eye: Present: EOMI, PERRL ENT: Present: mucous membranes moist - Routine Neck Exam Present: supple. Absent: JVD, carotid bruit - Routine Chest/Breast/Axilla Exam Chest wall: Absent: tenderness - Routine Respiratory Exam Present: CTA bilaterally - Routine Cardiovascular Exam Present: RRR, S1, S2, bradycardia. Absent: murmur - Routine Abdominal Exam Present: soft, normoactive bowel sounds - Routine Extremities Exam Present: normal capillary refill. Absent: cyanosis, clubbing, edema - Routine Skin Exam Present: intact - Routine Neurological Exam Present: alert, oriented X3, CN II-XII intact Results 03/21/18 12:23 03/19/18 18:30 CBC 03/21/18 Range/Units 12:23 WBC 7.9 (4.0-11.0) th/mm3 RBC 4.34 (4.00-5.30) mil/mm3 Hgb 12.7 (11.6-15.3) gm/dL Hct 37.3 (35.0-46.0) % Plt Count 275 (150-450) th/mm3 Neut # (Auto) 5.3 (1.8-7.7) th/mm3 Lymph # (Auto) 1.8 (1.0-4.8) th/mm3 Dent # (Auto) 0.7 (0.0-0.9) th/mm3 Eos # (Auto) 0.1 (0.0-0.4) th/mm3 Baso # (Auto) 0.1 (0.0-0.2) th/mm3 Intake and Output 03/20/18 03/21/18 03/21/18 22:59 06:59 14:59 Other: # Voids 4 Date of Last Bowel Movement 03/20/18 # Emeses 0 EKG interpretations - EKG EKG shows: bradycardia - Blocks, axis, hypertrophy, ST abn Repolarization changes or abnormalities: ST or T wave suggestive of ischemia Assessment and Plan - Assessment (1) Syncope Code(s): R55 - Syncope and collapse Status: Acute (2) Bradycardia Code(s): R00.1 - Bradycardia, unspecified Status: Acute - Plan 62 yo lady, no significant medical problem, not taking any medications, had a syncopal event at home 03/20/2018, ECG showed sinus mariya at 41 bpm with inverted T wave precordial leads. hx of questionable syncope 10 years ago, which patient attributed to "heat stroke" Etiology to be determined so far, negative troponin, will repeat second set Echo showed LVEF 70%, no significant valvular disease TSH normal Tele monitor showed sinus, HR in 50-60 Waiting for stress test to be completed tomorrow She may need further monitoring such as event monitor or loop recorder, or PPM. Will continue to monitor. (1) Syncope Qualifiers: Syncope type: unspecified Qualified Code(s): R55 - Syncope and collapse
--- NOTE | 2018-03-22 08:54 | ECG ---
Date Performed: 03/21/2018 Time Performed: 16:32:52 PTAGE: 62 years EKG: SINUS BRADYCARDIA ANTEROSEPTAL MYOCARDIAL INFARCTION MODERATE T-WAVE ABNORMALITY, CONSIDER LATERAL ISCHEMIA ABNORMAL ECG Since the PREVIOUS TRACING , no significant change noted PREVIOUS TRACIN03/19/2018 19.32 DOCTOR: Kasey Brady Interpretating Date/Time 03/22/2018 08:53:14
[2018-03-22] MEDS ORDERED: Regadenoson Inj 0.4 MG/5 ML Syringe IV.PUSH ONE (12:52)
--- NOTE | 2018-03-22 14:15 | NM ---
EXAM DATE: 03/22/2018 1:49 PM EDT AGE/SEX: 62 years / Female INDICATIONS:Abnormal EKG. . CLINICAL DATA: This is the patient's initial encounter. Patient reports that signs and symptoms have been present for 1 day and indicates a pain score of 2/10. MEDICAL/SURGICAL HISTORY: None. Hysterectomy. section. COMPARISON: No prior exams available for comparison. DOSE: 30.1 mCi Tc 99m Myoview at rest 30.1 mCi [id number] at stress 0.4 mg Lexiscan STRESS SYMPTOMS: Lightheaded. EJECTION FRACTION: 64 % TECHNIQUE: The patient underwent pharmacologic stress with infusion of prescribed dose. Continuous ECG tracing was monitored during stress. Gated SPECT imaging was performed after stress and conventi onal SPECT imaging was performed at rest. The examination was performed on a SPECT/CT scanner, both attenuation and non-corrected datasets were reviewed. FINDINGS: Distribution: The maximum perfused segment at stress is in the anterior wall. Perfusion Study: The pattern of perfusion at stress is within normal limits. Gated Study: There are intact wall motion and wall thickening without hypokinetic or dyskinetic segm ents. The ejection fraction is calculated at 64%. RISK CATEGORY: Low (<1% Annual Motality Rate) CONCLUSION: 1. No significant reversibility to suggest ischemia. 2. Normal wall motion with ejection fraction 64%. Electronically signed by: Donnell Coronel MD 03/22/2018 2:14 PM EDT
--- NOTE | 2018-03-22 14:32 | P.PNIM ---
Subjective Interval history: Follow up: syncope and bradycardia Patient reports feeling well Offers no new concerns/complaints Physical Exam Vital signs: Vital Signs 03/21/18 16:00 03/21/18 19:51 03/21/18 19:56 Temperature 97.6 F 98.4 F Pulse Rate 46 L 47 L 56 L Respiratory Rate 16 17 56 H Blood Pressure 111/56 L 119/56 L 123/65 Pulse Oximetry 96 97 03/21/18 23:34 03/22/18 03:04 03/22/18 07:13 Temperature 98.2 F 98.1 F Pulse Rate 46 L 43 L 47 L Respiratory Rate 16 17 Blood Pressure 114/59 L 104/56 L Pulse Oximetry 95 95 03/22/18 07:57 03/22/18 08:01 03/22/18 08:02 Temperature 97.7 F Pulse Rate 48 L Respiratory Rate 16 Blood Pressure 103/51 L 110/58 L 118/66 Pulse Oximetry 96 03/22/18 11:37 Temperature 98.2 F Pulse Rate 48 L Respiratory Rate 16 Blood Pressure 100/59 L Pulse Oximetry 96 Intake & Output 03/21/18 03/22/18 03/22/18 18:59 06:59 18:59 Other: # Voids 4 Date of Last Bowel Movement 03/20/18 Narrative: GENERAL: 62 year old female, no acute distress. SKIN: Warm and dry. Left lower abdominal wall with open wound from recent I&D procedure with packing in place. HEAD: Atraumatic. Normocephalic. CARDIOVASCULAR: Bradycardic RESPIRATORY: No accessory muscle use. Clear to auscultation. GASTROINTESTINAL: Abdomen soft, non-tender, nondistended. MUSCULOSKELETAL: Extremities without clubbing, cyanosis, or edema. No obvious deformities. NEUROLOGICAL: Awake and alert. No obvious cranial nerve deficits. Motor grossly within normal limits. Five out of 5 muscle strength in the arms and legs. Normal speech. Results - Labs CBC & Chem 7: 03/21/18 12:23 03/19/18 18:30 Laboratory Results - last 24 hr 03/21/18 14:20 Troponin I Less than 0.02 L - Imaging Impressions Myocardial Perfusion Scan Nuc Med 03/21/18 00:00 CONCLUSION: 1. No significant reversibility to suggest ischemia. 2. Normal wall motion with ejection fraction 64%. Assessment and Plan - Plan Syncope Questionable etiology. Head CT reviewed and reveals: No acute intracranial abnormalities. Fluid in the sphenoid sinus. 2D cardiac echocardiogram: The left ventricular systolic function is hyperdynamic with an estimated ejection fraction in the range of 65- 70%. Normal left ventricular size. Wall thickness is normal. No regional wall motion abnormalities are present. No tricuspid regurgitation. Normal estimated pulmonary pressures. The pulmonary valve is not well visualized. Carotid ultrasound: 1. Right Internal Carotid Artery: Findings indicate <50% stenosis. 2. Left Internal Carotid Artery: Findings indicate <50% stenosis. Telemetry shows bradycardia in the 40s with syncopal episode 03/19/18 cardiology has been consulted, (03/21/18) Dr. Bell discussed with cardiology Dr. Hou she would like Lexiscan Bradycardia consult placed to cardiology 12 lead EKG reviewed and reveals: SB rate 41 bpm Myocardial perfusion scan reveals: 1. No significant reversibility to suggest ischemia. 2. Normal wall motion with ejection fraction 64%. Will make patient NPO after midnight await further recommendations per cardiology Cervicalgia- resolved Resolved after muscle relaxer and Toradol. Cervical Spine CT reviewed and reveals: Moderate degenerative disc disease in the lower cervical spine with mild lateral recess and left-sided foraminal stenosis at C5-6-7. No acute findings. Abscess S/P incision and drainage of a cyst on her left abdominal wall 03/18/18 Wound care DVT prophylaxis with SCDs - Attending Attestation Patient examined. Assessment and plan formulated with Maryann GARZA I agree with the above.
--- NOTE | 2018-03-22 17:13 | P.PNCA ---
Subjective Interval history: no further syncopal event Tele showed sinus rhythm HR in mid 50s to mid 60s. Physical Exam Vital signs: Vital Signs 03/21/18 19:51 03/21/18 19:56 03/21/18 23:34 Temperature 98.4 F 98.2 F Pulse Rate 47 L 56 L 46 L Respiratory Rate 17 56 H 16 Blood Pressure 119/56 L 123/65 114/59 L Pulse Oximetry 97 95 03/22/18 03:04 03/22/18 07:13 03/22/18 07:57 Temperature 98.1 F 97.7 F Pulse Rate 43 L 47 L 48 L Respiratory Rate 17 16 Blood Pressure 104/56 L 103/51 L Pulse Oximetry 95 96 03/22/18 08:01 03/22/18 08:02 03/22/18 11:37 Temperature 98.2 F Pulse Rate 48 L Respiratory Rate 16 Blood Pressure 110/58 L 118/66 100/59 L Pulse Oximetry 96 03/22/18 15:00 03/22/18 16:00 Temperature 97.8 F Pulse Rate 43 L 44 L Respiratory Rate 16 Blood Pressure 131/61 Pulse Oximetry 100 Intake & Output 03/21/18 03/22/18 03/22/18 18:59 06:59 18:59 Other: # Voids 4 Date of Last Bowel Movement 03/20/18 - Constitutional no acute distress - Routine HEENT Exam Head: Present: normocephalic, atraumatic Eye: Present: EOMI, PERRL - Routine Neck Exam Present: supple, full ROM. Absent: JVD, carotid bruit - Routine Respiratory Exam Present: CTA bilaterally - Routine Cardiovascular Exam Present: RRR, S1, S2. Absent: murmur - Routine Abdominal Exam Present: soft, normoactive bowel sounds - Routine Extremities Exam Present: full ROM, normal capillary refill - Routine Skin Exam Present: intact, dry, warm - Routine Neurological Exam Present: alert, oriented X3, CN II-XII intact - Routine Psychiatric Exam Present: normal affect Assessment and Plan - Assessment (1) Syncope Code(s): R55 - Syncope and collapse Status: Acute (2) Bradycardia Code(s): R00.1 - Bradycardia, unspecified Status: Acute - Plan 62 yo lady, no significant medical problem, not taking any medications, had a syncopal event at home 03/20/2018, ECG showed sinus mariya at 41 bpm with inverted T wave precordial leads. hx of questionable syncope 10 years ago, which patient attributed to "heat stroke" Etiology to be determined so far, negative troponin, will repeat second set Echo showed LVEF 70%, no significant valvular disease TSH normal Tele monitor showed sinus, HR in 50-60 [place] nuclear stress test showed no ischemia She may need further monitoring such as event monitor or loop recorder, or PPM. Will continue to monitor. 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 Senior will resume care of this patient tomorrow. (1) Syncope Qualifiers: Syncope type: unspecified Qualified Code(s): R55 - Syncope and collapse
[2018-03-22] MEDS: Acetaminophen 325 MG Tablet PO PRN (17:40)
--- NOTE | 2018-03-23 07:45 | P.PNCA ---
<JorgeEliseo - Last Filed: 03/23/18 07:41> Subjective Interval history: Follow-up for syncope. Episode of syncope with no prodrome. Previous episodes of syncope 810 years ago. Has been in good health recently, denies any fatigue , lightheadedness, dizziness. Telemetry monitoring shows sinus bradycardia down to low 40s when sleeping. Physical Exam Vital signs: Vital Signs 03/22/18 07:57 03/22/18 08:01 03/22/18 08:02 Temperature 97.7 F Pulse Rate 48 L Respiratory Rate 16 Blood Pressure 103/51 L 110/58 L 118/66 Pulse Oximetry 96 03/22/18 11:37 03/22/18 15:00 03/22/18 16:00 Temperature 98.2 F 97.8 F Pulse Rate 48 L 43 L 44 L Respiratory Rate 16 16 Blood Pressure 100/59 L 131/61 Pulse Oximetry 96 100 03/22/18 17:00 03/22/18 18:00 03/22/18 19:00 Temperature 98 F Pulse Rate 48 L 55 L 56 L Respiratory Rate 16 Blood Pressure 109/55 L Pulse Oximetry 96 03/22/18 20:00 03/22/18 21:00 03/22/18 22:00 Temperature Pulse Rate 51 L 47 L 48 L Respiratory Rate Blood Pressure Pulse Oximetry 03/22/18 23:00 03/23/18 00:00 03/23/18 01:00 Temperature 98 F Pulse Rate 50 L 44 L 55 L Respiratory Rate 16 Blood Pressure 112/53 L Pulse Oximetry 96 03/23/18 02:00 03/23/18 03:00 03/23/18 04:00 Temperature 98 F Pulse Rate 50 L 50 L 48 L Respiratory Rate 16 Blood Pressure 105/58 L Pulse Oximetry 96 03/23/18 05:00 03/23/18 06:00 03/23/18 07:00 Temperature Pulse Rate 47 L 50 L 44 L Respiratory Rate Blood Pressure Pulse Oximetry Intake & Output 03/22/18 03/23/18 03/23/18 18:59 06:59 18:59 Intake Total 720 / 720 240 / 240 Output Total 300 / 300 Balance 420 / 420 240 / 240 Weight 160 lb 11.472 oz Intake: Oral 720 / 720 240 / 240 Output: Urine 300 / 300 Other: # Voids 2 Date of Last Bowel Movement 03/20/18 Narrative: GENERAL: Well-developed well-nourished. In no acute distress. NECK: No carotid bruits. No JVD. CARDIOVASCULAR: Bradycardic rate and regular rhythm. No murmur appreciated. RESPIRATORY: No accessory muscle use. Clear to auscultation. Breath sounds equal bilaterally. MUSCULOSKELETAL: No clubbing or cyanosis. No edema. NEUROLOGICAL: Awake and alert. Normal speech. Assessment and Plan - Plan 62 yo lady, no significant medical problem, not taking any medications, had a syncopal event at home 03/20/2018, ECG showed sinus mariya at 41 bpm with inverted T wave precordial leads. hx of questionable syncope 10 years ago Syncope: Unclear etiology. 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 Was planned for outpatient event monitor, could consider loop recorder depending on results Discussed Condition With: Patient, Dr. Cristina <James Cristina - Last Filed: 03/23/18 09:05> Physical Exam Vital signs: Vital Signs 03/22/18 11:37 03/22/18 15:00 03/22/18 16:00 Temperature 98.2 F 97.8 F Pulse Rate 48 L 43 L 44 L Respiratory Rate 16 16 Blood Pressure 100/59 L 131/61 Pulse Oximetry 96 100 03/22/18 17:00 03/22/18 18:00 03/22/18 19:00 Temperature 98 F Pulse Rate 48 L 55 L 56 L Respiratory Rate 16 Blood Pressure 109/55 L Pulse Oximetry 96 03/22/18 20:00 03/22/18 21:00 03/22/18 22:00 Temperature Pulse Rate 51 L 47 L 48 L Respiratory Rate Blood Pressure Pulse Oximetry 03/22/18 23:00 03/23/18 00:00 03/23/18 01:00 Temperature 98 F Pulse Rate 50 L 44 L 55 L Respiratory Rate 16 Blood Pressure 112/53 L Pulse Oximetry 96 03/23/18 02:00 03/23/18 03:00 03/23/18 04:00 Temperature 98 F Pulse Rate 50 L 50 L 48 L Respiratory Rate 16 Blood Pressure 105/58 L Pulse Oximetry 96 03/23/18 05:00 03/23/18 06:00 03/23/18 07:00 Temperature 97.8 F Pulse Rate 47 L 50 L 47 L Respiratory Rate 16 Blood Pressure 109/56 L Pulse Oximetry 96 03/23/18 08:00 Temperature Pulse Rate 41 L Respiratory Rate Blood Pressure Pulse Oximetry Intake & Output 03/22/18 03/23/18 03/23/18 18:59 06:59 18:59 Intake Total 720 / 720 240 / 240 Output Total 300 / 300 Balance 420 / 420 240 / 240 Weight 72.9 kg Intake: Oral 720 / 720 240 / 240 Output: Urine 300 / 300 Other: # Voids 2 Date of Last Bowel Movement 03/20/18 Assessment and Plan - Attending Attestation sinus bradycardia while in bed she had episode when standing to go to the bathroom. tele reviewed no arrhythmia check orthostatics and glucose Ok to eat NS 500 cc IV outpatient 24 hour holter encourage PO hydration if still symptomatic, may consider midodrine. ok for dc if feeling better later today FU in OPD
--- NOTE | 2018-03-23 09:22 | P.PNIM ---
Subjective Interval history: a little dizzy when standing not eating due to npo. Physical Exam Vital signs: Vital Signs 03/22/18 11:37 03/22/18 15:00 03/22/18 16:00 Temperature 98.2 F 97.8 F Pulse Rate 48 L 43 L 44 L Respiratory Rate 16 16 Blood Pressure 100/59 L 131/61 Pulse Oximetry 96 100 03/22/18 17:00 03/22/18 18:00 03/22/18 19:00 Temperature 98 F Pulse Rate 48 L 55 L 56 L Respiratory Rate 16 Blood Pressure 109/55 L Pulse Oximetry 96 03/22/18 20:00 03/22/18 21:00 03/22/18 22:00 Temperature Pulse Rate 51 L 47 L 48 L Respiratory Rate Blood Pressure Pulse Oximetry 03/22/18 23:00 03/23/18 00:00 03/23/18 01:00 Temperature 98 F Pulse Rate 50 L 44 L 55 L Respiratory Rate 16 Blood Pressure 112/53 L Pulse Oximetry 96 03/23/18 02:00 03/23/18 03:00 03/23/18 04:00 Temperature 98 F Pulse Rate 50 L 50 L 48 L Respiratory Rate 16 Blood Pressure 105/58 L Pulse Oximetry 96 03/23/18 05:00 03/23/18 06:00 03/23/18 07:00 Temperature 97.8 F Pulse Rate 47 L 50 L 47 L Respiratory Rate 16 Blood Pressure 109/56 L Pulse Oximetry 96 03/23/18 08:00 03/23/18 09:00 Temperature Pulse Rate 41 L 46 L Respiratory Rate Blood Pressure Pulse Oximetry Intake & Output 03/22/18 03/23/18 03/23/18 18:59 06:59 18:59 Intake Total 720 / 720 240 / 240 Output Total 300 / 300 Balance 420 / 420 240 / 240 Weight 72.9 kg Intake: Oral 720 / 720 240 / 240 Output: Urine 300 / 300 Other: # Voids 2 Date of Last Bowel Movement 03/20/18 heart reg lung cta abd s/nt ext no edema Results - Labs CBC & Chem 7: 03/21/18 12:23 03/19/18 18:30 Laboratory Results - last 24 hr 03/23/18 09:03 POC Glucose 101 - Imaging Impressions Myocardial Perfusion Scan Nuc Med 03/21/18 00:00 CONCLUSION: 1. No significant reversibility to suggest ischemia. 2. Normal wall motion with ejection fraction 64%. Assessment and Plan - Assessment (1) Syncope Code(s): R55 - Syncope and collapse Status: Acute Plan: Assessment and Plan - Plan Syncope Questionable etiology. Head CT reviewed and reveals: No acute intracranial abnormalities. Fluid in the sphenoid sinus. 2D cardiac echocardiogram: The left ventricular systolic function is hyperdynamic with an estimated ejection fraction in the range of 65- 70%. Normal left ventricular size. Wall thickness is normal. No regional wall motion abnormalities are present. No tricuspid regurgitation. Normal estimated pulmonary pressures. The pulmonary valve is not well visualized. Carotid ultrasound: 1. Right Internal Carotid Artery: Findings indicate <50% stenosis. 2. Left Internal Carotid Artery: Findings indicate <50% stenosis. Telemetry shows bradycardia in the 40s with syncopal episode 03/19/18 cardiology has been consulted, (03/21/18) Dr. Bell discussed with cardiology Dr. Hou she would like Lexiscan bolus ivf. begin diet. cardiology assessment this AM and likely dc home later today and outpt event monitor. Bradycardia consult placed to cardiology 12 lead EKG reviewed and reveals: SB rate 41 bpm Myocardial perfusion scan reveals: 1. No significant reversibility to suggest ischemia. 2. Normal wall motion with ejection fraction 64%. Cervicalgia- resolved Resolved after muscle relaxer and Toradol. Cervical Spine CT reviewed and reveals: Moderate degenerative disc disease in the lower cervical spine with mild lateral recess and left-sided foraminal stenosis at C5-6-7. No acute findings. Abscess S/P incision and drainage of a cyst on her left abdominal wall 03/18/18 packing out. wound closed. no purelent drainage now. DVT prophylaxis with SCDs (1) Syncope Qualifiers: Syncope type: unspecified Qualified Code(s): R55 - Syncope and collapse
[2018-03-23] MEDS: Acetaminophen 325 MG Tablet PO PRN (09:32)
[2018-03-23] MEDS: Sodium Chlor 0.9% Inj 500 ML IV.CONT SCH ×3 (09:43→21:34)
[2018-03-24] MEDS: Sodium Chlor 0.9% Inj 500 ML IV.CONT SCH (07:23)
--- NOTE | 2018-03-24 10:02 | P.PNIM ---
Subjective Interval history: no dizziness today. ambulating. present ate well yesterday and given ivf Physical Exam Vital signs: Vital Signs 03/23/18 11:00 03/23/18 12:00 03/23/18 13:00 Temperature 98.9 F Pulse Rate 52 L 58 L 61 Respiratory Rate 18 Blood Pressure 104/56 L Pulse Oximetry 94 L 03/23/18 14:00 03/23/18 15:00 03/23/18 16:00 Temperature 98.7 F Pulse Rate 45 L 49 L 47 L Respiratory Rate 18 Blood Pressure 112/55 L Pulse Oximetry 95 03/23/18 17:00 03/23/18 18:00 03/23/18 19:00 Temperature 98.4 F Pulse Rate 66 49 L 60 Respiratory Rate 16 Blood Pressure 109/54 L Pulse Oximetry 96 03/23/18 20:00 03/23/18 21:00 03/23/18 22:00 Temperature Pulse Rate 64 49 L 50 L Respiratory Rate Blood Pressure Pulse Oximetry 03/23/18 23:00 03/24/18 00:00 03/24/18 01:00 Temperature 98.8 F Pulse Rate 50 L 50 L 51 L Respiratory Rate 16 Blood Pressure 107/55 L Pulse Oximetry 96 03/24/18 02:00 03/24/18 03:00 03/24/18 04:00 Temperature 98.4 F Pulse Rate 51 L 51 L 53 L Respiratory Rate 16 Blood Pressure 99/54 L Pulse Oximetry 94 L 03/24/18 05:00 03/24/18 06:00 03/24/18 07:00 Temperature 98.3 F Pulse Rate 50 L 49 L 53 L Respiratory Rate 16 Blood Pressure 106/55 L Pulse Oximetry 93 L 03/24/18 08:00 03/24/18 09:00 Temperature Pulse Rate 53 L 67 Respiratory Rate Blood Pressure Pulse Oximetry Intake & Output 03/23/18 03/24/18 03/24/18 18:59 06:59 18:59 Intake Total 1140 / 1140 Output Total 200 / 200 Balance 1140 / 1140 -200 / -200 Weight 78 kg Intake: IV 500 / 500 NS Inj 500 ML @ 100 mls/hr IV. 500 / 500 CONT .Q5H IDRIS Rx#:[id number] Oral 640 / 640 Output: Urine 200 / 200 Other: # Voids 3 Date of Last Bowel Movement 03/21/18 heart reg lung cta abd s/nt ext no edema Results - Labs CBC & Chem 7: 03/21/18 12:23 03/19/18 18:30 Assessment and Plan - Assessment (1) Syncope Code(s): R55 - Syncope and collapse Status: Acute Plan: Assessment and Plan - Plan Syncope Questionable etiology. Head CT reviewed and reveals: No acute intracranial abnormalities. Fluid in the sphenoid sinus. 2D cardiac echocardiogram: The left ventricular systolic function is hyperdynamic with an estimated ejection fraction in the range of 65- 70%. Normal left ventricular size. Wall thickness is normal. No regional wall motion abnormalities are present. No tricuspid regurgitation. Normal estimated pulmonary pressures. The pulmonary valve is not well visualized. Carotid ultrasound: 1. Right Internal Carotid Artery: Findings indicate <50% stenosis. 2. Left Internal Carotid Artery: Findings indicate <50% stenosis. Telemetry shows bradycardia in the 40s with syncopal episode 03/19/18 cardiology has been consulted, (03/21/18) Dr. Bell discussed with cardiology Dr. Hou she would like Lexiscan pt monitored yesterday and given ivf and tolerated food. ambulating and dizziness resolved currently spoke with cardiology. ok for dc and f/u for event monitor. no driving for now and understood. Bradycardia consult placed to cardiology 12 lead EKG reviewed and reveals: SB rate 41 bpm Myocardial perfusion scan reveals: 1. No significant reversibility to suggest ischemia. 2. Normal wall motion with ejection fraction 64%. Cervicalgia- resolved Resolved after muscle relaxer and Toradol. Cervical Spine CT reviewed and reveals: Moderate degenerative disc disease in the lower cervical spine with mild lateral recess and left-sided foraminal stenosis at C5-6-7. No acute findings. Abscess S/P incision and drainage of a cyst on her left abdominal wall 03/18/18 packing out. wound closed. no purelent drainage now. DVT prophylaxis with SCDs (1) Syncope Qualifiers: Syncope type: unspecified Qualified Code(s): R55 - Syncope and collapse
--- NOTE | 2018-04-03 08:45 | P.DS ---
Date of admission: 03/22/18 12:36 Primary care physician: No Primary Care Physician Anticipated date of discharge: 03/24/18 Brief History from admission: 62-year-old obese female who is otherwise relatively healthy presents to the ER via [facility] after her found her on the floor unresponsive at their home earlier today. He reports he was in the next room and heard her fall against the wall onto to the floor. When he ran into the next room to investigate he found her somewhat unresponsive prone on the floor with her left arm behind her back. He reports that she was unconscious for approximately 30-45 seconds. He notified [facility] immediately and she apparently was conscious when they arrived. Her vital signs have been relatively stable here but her heart rate is remained in the 40s-50s consistently. I do not have any recent outpatient records but in 2016 on outpatient visits her heart rate was 59 and 67. She is unaware if she has had lower heart rate in the past and she does not typically go to the doctor and is generally pretty healthy. Patient reports that she can only remember coming back into her house after having smoked a cigarette and was walking across the room to her kitchen and the next thing she knew she was on the floor waking up with her staring down at her. She denies any chest pain or shortness of breath. There was no tongue biting or loss of bowel or bladder function. There was no postictal confusion. Patient denies any dyspnea or chest pain as noted. She had no palpitations. She has not had a similar episode in the past. It is noted that she had incision and drainage of a cyst on her left abdominal wall yesterday but she reports that has not been causing significant pain or problem for her. She denies any fevers or chills. Denies any nausea vomiting. No recent head injury but did say that her neck and her and felt somewhat tight after the fall today. Initial studies and labs are unrevealing as to the etiology of her syncopal episode. DS: Diagnosis - Discharge Diagnosis (1) Syncope Status: Acute DS: Summary Hospital Course: (1) Syncope Code(s): R55 - Syncope and collapse Status: Acute Syncope Questionable etiology. Head CT reviewed and reveals: No acute intracranial abnormalities. Fluid in the sphenoid sinus. 2D cardiac echocardiogram: The left ventricular systolic function is hyperdynamic with an estimated ejection fraction in the range of 65- 70%. Normal left ventricular size. Wall thickness is normal. No regional wall motion abnormalities are present. No tricuspid regurgitation. Normal estimated pulmonary pressures. The pulmonary valve is not well visualized. Carotid ultrasound: 1. Right Internal Carotid Artery: Findings indicate <50% stenosis. 2. Left Internal Carotid Artery: Findings indicate <50% stenosis. Telemetry showed bradycardia in the 40s with syncopal episode 03/19/18 cardiology has been consulted, (03/21/18) Dr. Bell discussed with cardiology Dr. Hou the seen by Dr Cristina. pt monitored yesterday and given ivf and tolerated food. ambulating and dizziness resolved currently spoke with cardiology. ok for dc and f/u for event monitor. no driving for now and understood. Bradycardia consult placed to cardiology 12 lead EKG reviewed and reveals: SB rate 41 bpm Myocardial perfusion scan reveals: 1. No significant reversibility to suggest ischemia. 2. Normal wall motion with ejection fraction 64%. Cervicalgia- resolved Resolved after muscle relaxer and Toradol. Cervical Spine CT reviewed and reveals: Moderate degenerative disc disease in the lower cervical spine with mild lateral recess and left-sided foraminal stenosis at C5-6-7. No acute findings. Abscess S/P incision and drainage of a cyst on her left abdominal wall 03/18/18 packing out. wound closed. no purelent drainage now. - Time Spent with Patient Total time spent providing and/or coordinating discharge services: Greater than 30 minutes - Quality: VTE Deep Vein Thrombosis/Pulmonary Embolism Present on Admission: No Exam Vital signs: heart reg 'lung cta abd s/nt ext no edema Results Procedures completed during hospitalization: lexiscan echo carotid u/s ct head - Impressions ITS Impressions Carotid Doppler Study 03/19/18 00:00 CONCLUSION: 1. Right Internal Carotid Artery: Findings indicate <50% stenosis. 2. Left Internal Carotid Artery: Findings indicate <50% stenosis. Cervical Spine CT 03/19/18 18:22 CONCLUSION: 1. Moderate degenerative disc disease in the lower cervical spine with mild lateral recess and left-sided foraminal stenosis at C5-6-7. No acute findings. Head CT 03/19/18 18:22 CONCLUSION: 1. No acute intracranial abnormalities. Fluid in the sphenoid sinus. Myocardial Perfusion Scan Nuc Med 03/21/18 00:00 CONCLUSION: 1. No significant reversibility to suggest ischemia. 2. Normal wall motion with ejection fraction 64%. Discharge Plan - Discharge Disposition Patient Disposition: 01 Discharge Home - Discharge Condition Condition: Stable - Discharge Order Discharge Orders: Discharge Order (Routine); Ordered 03/24/18 Ordered By: Jayce Dempsey - Discharge Details Anticipated Discharge Date: 03/20/18 Discharge Comment: ambulate in hallway then dc home today with . no driving for patient - Physicians Team Primary Care Provider: Primary Care Emelyni,No Attending Provider: Orion Bell Other Providers: Wing Carmencita Shine MD
== END 2018-03-24 11:18 | disposition home or self-care (01) ==
LOC: NEPE 14:52 → NEDA 14:52 → NEPGCP 22:08 → HCPC 03-22 13:50
PROVIDERS: ADMIT Hospitalist; ATTEND Hospitalist